=== PATIENT | male | born 1970 | race Caucasian/White ===

== ENCOUNTER 2017-01-02 19:07 | Emergency (ER) ==
--- NOTE | 2017-01-02 20:02 | PROVIDER DOCUMENTATION ---
HPI-General Adult - General Chief Complaint: Flank Pain Stated Complaint: MALE Time Seen by Provider: 01/02/17 19:53 Source: patient Allergies/Adverse Reactions: Patient Allergies Allergy/AdvReac Type Severity Reaction Status Date / Time Penicillins Allergy Unknown Verified 01/02/17 19:15 Home Medications: Home Medication List Medication Instructions Recorded Confirmed Last Taken Type No Home Medications 01/02/17 01/02/17 Unknown History - History of Present Illness -Gen Adult Nature of Presenting Problems: pt is a 46yom presenting to the ed c/o left flank pain. pt states pain began this morning but no complaints of urinary retention or dysuria. pt has a history of stones and states hes been complaining with his right shoulder he has a hx rotator cuff injury. no n/v/d or other complaints at this time Location of Pain/Injury: reports: upper body (l flank) Pain Radiation: reports: back Quality of Pain: reports: aching, cramping Severity: reports: moderate Onset/Duration: reports: 24 hours ago Timing: reports: still present Context/Activities at Onset: reports: light activity Modifying Factors: improves with: nothing Associated Symptoms: reports: back/neck pain, genitourinary problems, malaise. denies: arm pain, diarrhea, EENT symptoms, fatigue, nausea, shortness of breath , vomiting Similar Symptoms Previously?: No Recently seen or treated by another doctor?: No Review of Systems - Adult - REVIEW OF SYSTEMS - ADULT Constitutional: reports: no symptoms reported Eyes: reports: no symptoms reported Ears, Nose, Mouth & Throat: reports: no symptoms reported Cardiovascular: reports: no symptoms reported Respiratory: reports: no symptoms reported Gastrointestinal: reports: no symptoms reported Genitourinary: reports: see HPI, flank pain. denies: hematuria, urgency Musculoskeletal: reports: no symptoms reported Integumentary: reports: no symptoms reported Neurological: reports: no symptoms reported Psychiatric: reports: no symptoms reported Endocrine: reports: no symptoms reported Hematologic/Lymphatic: reports: no symptoms reported Allergic/Immunologic: reports: no symptoms reported All Other Systems: Reviewed and Negative Past History - Adult - PAST MEDICAL HISTORY-ADULT Review of Records: reports: Old Records Reviewed, Nursing Assessment Review, Medications Reviewed, Social history reviewed & non-contributory. Major Childhood Illnesses: reports: denies history Cardiovascular: reports: denies history Respiratory: reports: denies history Gastrointestinal: reports: denies history Obstetrical/Gynecological: reports: denies history Genitourinary: reports: denies history Musculoskeletal: reports: denies history Neurological: reports: denies history Endocrine/Immune: reports: denies history Other Conditions: reports: denies history - IMMUNIZATION STATUS Childhood Immunizations: See Nurse Assessment Flu Vaccine: See Nurse Assessment - FAMILY HISTORY Family History: reviewed, not pertinent - SOCIAL HISTORY Smoking: cigarettes, greater than 1 pack/day Provider spent 3-5 mins advising pt. on dangers of tobacco.: Discussed manners to quit use, and f/u contacts for add'l counseling. Substance Use: none/never, alcohol Alcohol Use Frequency: occasionally Number of drinks per typical drinking period:: 3-4 drinks Living Situation: family Physical Exam-General - PHYSICAL EXAM-ADULT Initial Vital Signs Reviewed: Yes - CONSTITUTIONAL General Appearance: alert, moderate distress. negative: appears well - EYES Eyes: PERRL/EOMI, pink conjunctivae, fundi clear, no AV nicking - HEAD, EARS, NOSE, MOUTH & THROAT HENMT: normocephalic/atraumatic, moist mucous membranes, normal ENT inspection, TMs normal, pharynx normal - NECK Neck: non-tender, full range of motion, supple, normal inspection - RESPIRATORY Respiratory: chest non-tender, lungs clear, normal breath sounds, no pleuratic chest pain, no respiratory distress, no accessory muscle use - CARDIOVASCULAR Cardiovascular: normal peripheral pulses, regular rate, rhythm, no edema, no gallop, no JVD, no murmur - GASTROINTESTINAL (ABDOMEN) Abdominal Exam: normal bowel sounds, non tender, soft - LYMPHATIC Lymphatic: no adenopathy - MUSCULOSKELETAL Back Exam: CVA tenderness. 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, grossly normal, no motor/sensory deficits - PSYCHIATRIC Psych/Mental Status: normal mood/affect, normal thought content, normal thought process, oriented x 3 Progress - PLAN OF CARE/RESULTS Progress/Plan/Lab Results: Laboratory Tests 01/02/17 01/02/17 01/02/17 20:30 21:20 21:20 WBC 13.58 H RBC 5.45 Hgb 16.8 Hct 50.3 MCV 92.3 MCH 30.8 MCHC 33.4 RDW Std Deviation 13.6 Plt Count 284 MPV 10.2 Immature Gran % (Auto) 0.4 Neut % (Auto) 54.6 Lymph % (Auto) 35.1 Edwards % (Auto) 7.7 Eos % (Auto) 1.8 Baso % (Auto) 0.4 Immature Gran # (Auto) 0.06 H Neut # (Auto) 7.41 H Lymph # (Auto) 4.76 H Edwards # (Auto) 1.04 H Eos # (Auto) 0.25 Baso # (Auto) 0.06 Sodium 141 Potassium 3.3 L Chloride 102 Carbon Dioxide 25 Anion Gap 14 BUN 13 Creatinine 0.8 Estimated GFR/1.73 m2 > 60 BUN/Creatinine Ratio 16 Glucose 96 Calculated Osmolality 281 Calcium 8.8 Total Bilirubin 0.50 AST 28 ALT 30 Alkaline Phosphatase 78 Total Protein 7.3 Albumin 4.4 Globulin 3.0 Albumin/Globulin Ratio 2.0 Amylase 59 Lipase 46 Urine Source VOIDED Urine Color ORANGE Urine Clarity CLEAR Urine pH 6.0 Ur Specific [place] 1.020 Urine Protein 3+(500 mg/dL) A Urine Ketones NEGATIVE Urine Blood NEGATIVE Urine Nitrite POSITIVE A Urine Bilirubin 3+ A Urine Urobilinogen 3+(8 mg/dL) Urine Microscopic RBC <10 Urine WBC NEGATIVE Urine Microscopic WBC <10 Ur Epithelial Cells <10 Urine Bacteria 3+ Urine Glucose NEGATIVE Orders Category Date Time Status Saline Loc DIRECTED Care 01/02/17 19:57 Active NPO Diet 01/02/17 19:57 Active ABDOMEN/PELVIS W/O CONTRAST [CT] Stat Exams 01/02/17 19:58 Draft SHOULDER-RIGHT [RAD] Stat Exams 01/02/17 19:59 Taken AMYLASE [CHEM] Stat Lab 01/02/17 21:20 Completed CBC WITH ELECTRONIC DIFF [HEME] Stat Lab 01/02/17 21:20 Completed COMPREHENSIVE METABOLIC PANEL [CHEM] Stat Lab 01/02/17 21:20 Completed LIPASE [CHEM] Stat Lab 01/02/17 21:[address] W/POSS RFLX CULT [URINALYSIS] Stat Lab 01/02/17 20:30 Completed URINE CULTURE [RM] Routine Lab 01/02/17 22:03 Ordered Vital Signs - 24 hr 01/02/17 19:11 Temperature 98.5 F Pulse Rate 90 Respiratory 18 Rate Blood Pressure 196/101 O2 Sat by Pulse 98 Oximetry - CT/MRI 1 CT Study: Renal Stone (POSS TINY 2MM RIGHT RENAL STONE, OTHERWISE NAD) Departure - Departure Time of Disposition Order: 23:45 DIAGNOSIS: Renal stone Disposition: HOME 01 Certified Medical Emergency: Emergent Condition: Stable Attestation - Scribe Verification/Attestation Scribe:: Elvira Calix Acting as Scribe for:: Jesús Soto Scribe documention review:: This chart was documented by a scribe and accurately reflects the service the provider performed and the decisions made by the provider. Physician Attestation - Physician Attestation I, the provider, attest to the following statement:: Jesús Soto Physician documentation Attestation:: This documentation recorded by the scribe accurately reflects the service I personally performed and the decisions made by me.
--- NOTE | 2017-01-02 20:56 | Diag Imaging Result Document ---
PROCEDURE NAME: ABDOMEN/PELVIS W/O CONTRAST - 01/02/2017 CT ABDOMEN PELVIS: A CT dose reduction protocol was used. COMPARISON: None. FINDINGS: The lung bases are clear and the heart size is normal. The gallbladder is absent. There is some mild pneumobilia which is benign. No biliary dilation. There may be a tiny nonobstructing 2 mm right renal stone. No hydronephrosis or hydroureter. No bowel obstruction or inflammation. Urinary bladder, prostate and rectum are normal. There is degenerative disk disease at L5-S1. No acute bony lesions. IMPRESSION: Possible tiny 2 mm right renal stone. Otherwise, no acute disease. MTDD
[2017-01-02 21:43] LABS: URINE SOURCE VOIDED
[2017-01-02 21:44] LABS: MANUAL DIFF NEEDED? NO
[2017-01-02 21:59] LABS: AGAP 14; ALBUMIN 4.4 g/dL (3.5-5.0); ALKALINE PHOSPHATASE 78 U/L (32-122); AMYLASE 59 U/L (20-200); BUN 13 mg/dL (8-22); CALCIUM 8.8 mg/dL (8.8-10.2); CHLORIDE 102 mmol/L (98-107); COSMO 281; GOT 28 U/L (10-34); GPT 30 U/L (10-44); LIPASE 46 U/L (13-60); POTASSIUM 3.3 mmol/L (3.5-5.1); SODIUM 141 mmol/L (136-145); TCO2 25 mmol/L (25-35); TOTAL PROTEIN 7.3 g/dL (6.3-8.3)
[2017-01-02 22:02] LABS: BILIRUBIN URINE 3+ (NEGATIVE); BLOOD URINE NEGATIVE (NEGATIVE); CLARITY CLEAR (CLEAR); COLOR ORANGE; GLUCOSE URINE NEGATIVE (NEGATIVE); LEUKOCYTES URINE NEGATIVE (NEGATIVE); NITRITE URINE POSITIVE (NEGATIVE); UROBILINOGEN URINE 3+(8 mg/dL)
[2017-01-02 22:03] LABS: URINE CULTURE PL NEEDED? YES; URINE EPITHELIAL CELLS <10 /HPF (<10); URINE RBC <10 /HPF (<10); URINE WBC <10 /HPF (<10)
[2017-01-02 22:40] LABS: BASO% 0.4 % (0.0-0.8); EOS# 0.25 X1000 (0.0-0.7); EOS% 1.8 % (0.0-10.0); HEMATOCRIT 50.3 % (42.0-52.0); HEMOGLOBIN 16.8 g/dL (14.0-18.0); IMM GRAN# 0.06 X1000 (0.0-0.04); IMM GRAN% 0.4 % (0.0-0.5); LYMPH# 4.76 X1000 (1.2-3.4); LYMPH% 35.1 % (20.5-51.1); MCH 30.8 PG (27-31); MCHC 33.4 g/dL (33-37); MCV 92.3 FL (81-99); MONO# 1.04 X1000 (0.11-0.59); MONO% 7.7 % (1.7-9.3); MPV 10.2 FL (7.4-10.4); NEUT% 54.6 % (42.2-75.2); PLT 284 X1000 (130-400); RBC 5.45 XMIL (4.7-6.1)
[2017-01-03 00:06] VITALS: BP 218/132
--- NOTE | 2017-01-03 09:10 | Diag Imaging Result Document ---
PROCEDURE NAME: SHOULDER-RIGHT - 01/02/2017 X-RAY RIGHT SHOULDER, 3 VIEWS: COMPARISON: None. FINDINGS: The bones are intact and normally aligned. The glenohumeral joint is preserved. There is moderate hypertrophic degeneration of the acromioclavicular joint with some downgoing spurring. IMPRESSION: Acromioclavicular joint arthropathy. No acute disease.
== END 2017-01-03 00:05 | disposition home or self-care (01) ==
LOC: P.ED 19:07
DX: N20.0 Calculus of kidney (principal); R10.9 Unspecified abdominal pain; M54.9 Dorsalgia, unspecified; R53.81 Other malaise; F17.210 Nicotine dependence, cigarettes, uncomplicated; Z71.6 Tobacco abuse counseling; M25.511 Pain in right shoulder
CPT/HCPCS: 74176; 80053; 81001; 82150; 83690; 85025; 87088